=== PATIENT | male | born 1960 | race Caucasian/White ===

== ENCOUNTER 2016-08-28 06:48 | Emergency (ER) | payer OTHER ==
[~2016-08-28 06:48] MED LIST: AMOXICILLIN500 M3 PO; FLEXERIL10 MG PO; LEADER MELATONIN5 MG PO; OXYCODONE5 MG PO; PERCOCET 325 MG1 TA2 PO; PREDNISONE10 MG PO; PROAIR HFA8.5 GM INH; TAMSULOSIN HCL0.4 M1 PO
[2016-08-28 07:07] VITALS: BP 105/65
--- NOTE | 2016-08-28 07:16 | ED ANIMAL BITE/WOUND CHECK ---
History of Present Illness General Chief Complaint: Suture Removal/Wound Recheck Stated Complaint: NEEDS WOUND CLEANED AND REDRESSED Source: patient, old records Exam Limitations: no limitations Vital Signs & Intake/Output Vital Signs & Intake/Output Vital Signs Date Time Temp Pulse Resp B/P B/P Pulse O2 O2 Flow FiO2 Mean Ox Delivery Rate 08/28 0707 97.4 67 16 105/65 95 Room Air Allergies Coded Allergies: NO KNOWN ALLERGIES (09/01/15) Reconcile Medications Tamsulosin HCl 0.4 MG CAP.ER.24H 1 CAP PO DAILY PROSTATE (Reported) Triage Note: PT HERE TO GET WOUND TO LT MIDDLE FINGER CLEANED AND REDRESSED. HAS 7 SUTURES TO AREA, APPEARS DIRTY. PT STATES ST V'S DID SUTURES Triage Nurses Notes Reviewed? yes Onset: Last week Duration: day(s):, constant Timing: recent history Injury Environment: home Is Injury an Animal Bite? No Severity: moderate Modifying Factors: Worsens With: movement. HPI: Patient presents for wound cleaning and dressing of laceration sustained with chain saw last week. He denies fever chills nausea vomiting diarrhea abdominal pain chest pain shortness of breath headache dysuria rash bleeding wound discharge. Past History Travel History Traveled to [place] past 21 day No Medical History Any Pertinent Medical History? see below for history Neurological: NONE EENT: NONE Cardiovascular: NONE Respiratory: NONE Gastrointestinal: NONE Hepatic: NONE Renal: NONE Musculoskeletal: sciatica Psychiatric: OPIATE ABUSE Endocrine: NONE Blood Disorders: NONE Surgical History Surgical History: non-contributory Psychosocial History What is your primary language Swedish Tobacco Use: Current Daily Use Daily Tobacco Use Amount/Type: => 5 Cigarettes daily Family History Hx Contributory? No Review of Systems Review of Systems Constitutional: Reports: no symptoms. EENTM: Reports: no symptoms. Respiratory: Reports: no symptoms. Cardiovascular: Reports: no symptoms. GI: Reports: no symptoms. Genitourinary: Reports: no symptoms. Musculoskeletal: Reports: no symptoms. Skin: Reports: see HPI. Neurological/Psychological: Reports: no symptoms. Hematologic/Endocrine: Reports: no symptoms. Immunologic/Allergic: Reports: no symptoms. All Other Systems: Reviewed and Negative Physical Exam Physical Exam General Appearance: well developed/nourished, mild distress Head: atraumatic Eyes: Bilateral: PERRL, EOMI. Ears, Nose, Throat: normal pharynx, normal ENT inspection, hearing grossly normal Neck: normal inspection, supple Respiratory: normal breath sounds Cardiovascular: regular rate/rhythm Gastrointestinal: soft, non-tender Back: normal inspection Extremities: normal range of motion Neurologic/Psych: awake, alert, oriented x 3, normal mood/affect Skin: intact, normal color, warm/dry, sutures intact without inflammation discharge dehiscence Lymphatic: no anterior cervical gloria Progress Differential Diagnosis: abscess, cellulitis Plan of Care: wound care Departure Departure Time of Disposition: 713 Disposition: HOME OR SELF CARE Condition: Stable Clinical Impression Primary Impression: Encounter for re-check of laceration wound Referrals: ROSEMARIE CANCINO DO (PCP/Family) Departure Forms: Customer Survey General Discharge Information
== END 2016-08-28 07:33 ==
LOC: ERH 06:48
DX: Z48.01 Encounter for change or removal of surgical wound dressing (principal)
CPT/HCPCS: 99281